=== PATIENT | male | born 1965 | race Caucasian/White ===

== ENCOUNTER → 2023-09-26 10:35 | Outpatient (REF) | payer BC, SELFPAY ==
[2023-09-26 11:36] LABS: % Basophils 0.5 % (0-2); % Eosinophils 2.7 % (0-6); % Immature Granulocytes 0.3 % (0-0.5); % Lymphocytes 29.8 % (20.5-51.1); % Monocytes 9.9 % (1.7-9.3); % Neutrophils 56.8 % (42.2-75.2); Absolute Eosinophils 0.2 10^3/uL (0-0.7); Absolute Lymphocytes 2.3 10^3/uL (1.2-3.4); Absolute Monocytes 0.8 10^3/uL (0.1-0.6); Absolute Neutrophils 4.3 10^3/uL (1.4-6.5); Hematocrit 47.4 % (39.0-52.0); Hemoglobin 16.3 g/dL (13.0-18.0); Mean Corp Hgb Conc. 34.4 g/dL (33.0-37.0); Mean Corpuscular Hgb 30.9 pg (27.0-31.0); Mean Corpuscular Volume 89.8 fL (80.0-94.0); Mean Platelet Volume 10.8 fL (7.4-10.4); Nucleated Red Blood Cells % 0 % (-); Platelet Count 200 10^3/uL (130-400); Red Blood Cell Count 5.28 10^6/uL (4.70-6.10); Red Cell Dist. Width 12.7 % (11.5-14.5); White Blood Cell Count 7.5 10^3/uL (4.8-10.8)
[2023-09-26 12:33] LABS: ALT (SGPT) 28 U/L (0-50); AST (SGOT) 26 U/L (17-59); Albumin 4.3 g/dl (3.5-5.0); Alkaline Phosphatase 59 U/L (38-126); Blood Urea Nitrogen 17 mg/dl (9-20); Calcium 10.4 mg/dl (8.4-10.2); Carbon Dioxide 27 mmol/L (22-30); Chloride 103 mmol/L (98-107); Glucose 100 mg/dl (70-99); Potassium 3.7 mmol/L (3.5-5.1); Sodium 139 mmol/L (135-145); Total Bilirubin 0.8 mg/dl (0.2-1.3); eGFR > 60.00
[2023-09-26 12:55] LABS: TSH Reflex To Free T4 1.12 uIU/ml (0.47-4.68)
[2023-09-26 13:56] LABS: Glycohemoglobin (HgbA1c) 5.7 % (4.0-5.6)
[2023-09-27 14:23] LABS: tTG IgA Antibody 7.2 EU/ml (0-19); tTG IgG Antibody 7.5 EU/ml (0-19)
[2023-09-28 00:02] LABS: IgA 298 mg/dl (70-400)
[2023-09-29 08:00] LABS: Endomysial IgA Antibody Titer <1:10 (<1:10)
== END ==
LOC: REG 10:35
PROVIDERS: ATTENDING PHYSICIAN Nurse Practitioner Family
DX: E11.42 Type 2 diabetes mellitus with diabetic polyneuropathy (principal); R11.0 Nausea; R19.7 Diarrhea, unspecified
CPT/HCPCS: 36415; 80053; 82784; 83036; 83516; 84443; 85025; 86231

== ENCOUNTER → 2024-02-29 07:59 | Outpatient (REF) | payer BC, SELFPAY ==
[2024-02-29 08:43] LABS: % Basophils 0.6 % (0-2); % Eosinophils 2.7 % (0-6); % Immature Granulocytes 0.3 % (0-0.5); % Lymphocytes 29.7 % (20.5-51.1); % Monocytes 9.8 % (1.7-9.3); % Neutrophils 56.9 % (42.2-75.2); Absolute Basophils 0.1 10^3/uL (0-0.2); Absolute Eosinophils 0.2 10^3/uL (0-0.7); Absolute Lymphocytes 2.3 10^3/uL (1.2-3.4); Absolute Monocytes 0.8 10^3/uL (0.1-0.6); Absolute Neutrophils 4.5 10^3/uL (1.4-6.5); Hematocrit 50.9 % (39.0-52.0); Mean Corp Hgb Conc. 33.4 g/dL (33.0-37.0); Mean Corpuscular Hgb 28.3 pg (27.0-31.0); Mean Corpuscular Volume 84.8 fL (80.0-94.0); Mean Platelet Volume 10.3 fL (7.4-10.4); Nucleated Red Blood Cells % 0 % (-); Platelet Count 201 10^3/uL (130-400); Red Cell Dist. Width 13.7 % (11.5-14.5); White Blood Cell Count 7.9 10^3/uL (4.8-10.8)
[2024-02-29 09:47] LABS: Glycohemoglobin (HgbA1c) 6.1 % (4.0-5.6)
[2024-02-29 10:05] LABS: Protein/creatinine Ratio 0.1; Urine Protein 18 mg/dl
[2024-02-29 10:22] LABS: ALT (SGPT) 51 U/L (0-50); AST (SGOT) 50 U/L (17-59); Albumin 4.7 g/dl (3.5-5.0); Alkaline Phosphatase 76 U/L (38-126); Blood Urea Nitrogen 14 mg/dl (9-20); Carbon Dioxide 27 mmol/L (22-30); Chloride 102 mmol/L (98-107); Glucose 109 mg/dl (70-99); HDL Cholesterol 53 mg/dl; LDL Cholesterol, Calculated 132 mg/dl; Potassium 4.2 mmol/L (3.5-5.1); Sodium 141 mmol/L (135-145); Total Bilirubin 0.7 mg/dl (0.2-1.3); Total Cholesterol 212 mg/dl (50-199); Total Protein 7.5 g/dl (6.3-8.2); Triglyceride 139 mg/dl (10-149); Very Low Density Lipoprotein 27 mg/dl (0-30); eGFR > 60.00
[2024-02-29 10:55] LABS: Vitamin D, 25-OH*** 42.7 ng/mL (30-80)
[2024-03-01 23:29] LABS: % Free Testosterone 1.6 % (1.6-2.9); Free Testosterone 130 pg/mL (47-244); Sex Hormone Binding Globulin 50 nmol/L (19-76); Total Testosterone 810 ng/dL (300-890)
== END ==
LOC: REG 07:59
PROVIDERS: ATTENDING PHYSICIAN Nurse Practitioner Primary Care
DX: E11.42 Type 2 diabetes mellitus with diabetic polyneuropathy (principal); R80.9 Proteinuria, unspecified; D75.1 Secondary polycythemia; E55.9 Vitamin D deficiency, unspecified
CPT/HCPCS: 36415; 80053; 80061; 82306; 82570; 83036; 84156; 84270; 84402; 84403; 85025

== ENCOUNTER → 2024-03-18 17:33 | Outpatient (REF) | payer BC, SELFPAY | LOC: MRI 17:33 | PROVIDERS: ATTENDING PHYSICIAN Physician Assistant Surgical; FAMILY PHYSICIAN Nurse Practitioner Primary Care | DX: M54.16 Radiculopathy, lumbar region (principal); M54.50 Low back pain, unspecified; M48.062 Spinal stenosis, lumbar region with neurogenic claudication; Z98.1 Arthrodesis status | CPT/HCPCS: 72158; A9575 ==

== ENCOUNTER 2024-04-01 06:39 | Outpatient (RCR) | payer BC, SELFPAY | END 2024-04-01 23:59 | disposition home or self-care (01) | LOC: RPT 06:39 | PROVIDERS: ATTENDING PHYSICIAN Physician Assistant Surgical; FAMILY PHYSICIAN Nurse Practitioner Primary Care | DX: M48.062 Spinal stenosis, lumbar region with neurogenic claudication (principal); Z73.6 Limitation of activities due to disability; R26.2 Difficulty in walking, not elsewhere classified | CPT/HCPCS: 97112; 97161 ==

== ENCOUNTER 2024-04-08 06:49 | Outpatient (RCR) | payer BC, SELFPAY | END 2024-04-08 23:59 | disposition home or self-care (01) | LOC: RPT 06:49 | PROVIDERS: ATTENDING PHYSICIAN Physician Assistant Surgical; FAMILY PHYSICIAN Nurse Practitioner Primary Care | DX: M48.062 Spinal stenosis, lumbar region with neurogenic claudication (principal); Z73.6 Limitation of activities due to disability; R26.2 Difficulty in walking, not elsewhere classified; R26.89 Other abnormalities of gait and mobility | CPT/HCPCS: 97010; 97110; 97112 ==

== ENCOUNTER → 2024-05-03 09:25 | Outpatient (REF) | payer BC, SELFPAY | LOC: RCS 09:25 | PROVIDERS: ATTENDING PHYSICIAN Nurse Practitioner Family | DX: Z01.818 Encounter for other preprocedural examination (principal) | CPT/HCPCS: 36415; 93005 ==

== ENCOUNTER 2024-05-21 10:12 | Inpatient (IN) | payer BC, SELFPAY ==
[2024-05-07 08:47] VITALS: BMI 46.3
[2024-05-07 08:50] LABS: Hemoglobin 16.4 g/dL (13.0-18.0); Mean Corp Hgb Conc. 33.5 g/dL (33.0-37.0); Mean Corpuscular Hgb 27.8 pg (27.0-31.0); Mean Corpuscular Volume 83.2 fL (80.0-94.0); Mean Platelet Volume 10.5 fL (7.4-10.4); Platelet Count 182 10^3/uL (130-400); Red Blood Cell Count 5.89 10^6/uL (4.70-6.10); Red Cell Dist. Width 14.5 % (11.5-14.5); White Blood Cell Count 7.1 10^3/uL (4.8-10.8)
[2024-05-07 09:25] LABS: ALT (SGPT) 36 U/L (0-50); AST (SGOT) 37 U/L (17-59); Albumin 4.5 g/dl (3.5-5.0); Alkaline Phosphatase 79 U/L (38-126); Blood Urea Nitrogen 12 mg/dl (9-20); Calcium 9.7 mg/dl (8.4-10.2); Carbon Dioxide 25 mmol/L (22-30); Chloride 102 mmol/L (98-107); Estimated Creatinine Clearance > 125 ml/min; Glucose 134 mg/dl (70-99); Sodium 141 mmol/L (135-145); Total Bilirubin 0.6 mg/dl (0.2-1.3); Total Protein 7.3 g/dl (6.3-8.2); eGFR > 60.00
[2024-05-14 08:51] VITALS: BMI 46.3
[2024-05-21] VITALS (20 sets, daily range): BP systolic 115–208; BP diastolic 67–140; PULSE 85; O2SAT 93
[2024-05-21] MEDS: TYLENOL 1000 MG PO ×3 (10:15→22:32)
[2024-05-21] MEDS: CELEBREX 200 MG PO (10:15)
[2024-05-21] MEDS: LYRICA 150 MG PO (10:15)
[2024-05-21] MEDS: SKELAXIN 800 MG PO (10:15)
[2024-05-21] MEDS: DILAUDID 0.5 MG IV ×2 (14:21→15:19)
[2024-05-21] MEDS: TRANDATE 5 MG IV ×2 (14:36→15:03)
[2024-05-21 14:42] LABS: Glucose - Point of Care 127 mg/dl (70-99)
--- NOTE | 2024-05-21 15:34 | W.PN.ORTHO ---
Today's Communication / Plan
-
D/c when clinically stable.
Assessment
.
Distal Motor Intact: Yes
Dressing:
Clean, dry and intact.
Assessment:
Lumbar stenosis and spondylolisthesis with neurogenic claudication s/p removal of implants L3-L4 and L3-L5 PSF w/ Dr Delongu 05/21/24
- s/p L3-L4 microdiscectomy with fusion, 2019, by Dr. Chinchilla
DVT prophylaxis - b/l SCDs/TEDs
HTN - hypertensive post-op 2* non-compliance w/ Losartan and pain - monitor BP
- Given Labetalol x2 in PACU
- Resume Losartan w/ SBP parameters
- Continue low sodium diet as advised by PCP
- Ensure adequate pain control
JUAN JOSE, non-compliant w/ CPAP - monitor O2 on continuous pulse ox
- IS
- Wean supplemental O2 as tolerated. Will, however, order supplemental O2 HS d/t non-compliance w/ device
NIDDM, A1c 6.1 02/2024 - previous Ozempic use - monitor BS
- + SSI
GERD - continue PPI therapy
Chronic pain syndrome � on Dilaudid (reportedly uses 2-3x weekly)
- Monitor pain and adjust pain meds accordingly
BPH w/ LUTS - monitor voids
- Resume Flomax
- Bladder scan/straight cath prn
HLD
Colon polyps
Nephrolithiasis
OA s/p b/l TKA 2018
Recurrent UTIs
Hypogonadism � on Testosterone
ED
H/o [place] palsy
Polycythemia
Morbid obesity, BMI 46.3
History of tobacco abuse
Plan
.
Surgery / Date: Removal of implants L3-L4, L3-L5 PSF w/ Reed 05/21
DVT Prophylaxis: Other (b/l SCDs/TEDs)
Activity:
Out of bed.
PT/OT
Discharge Plan: Home
Subjective
.
.:
Patient examined resting in PACU.
Reports 8/10 low back pain currently - IV Dilaudid provided.
Hypertensive and hypoxic post-procedure in the setting of non-compliance w/ home BP meds, pain, and underlying JUAN JOSE.
Vital Signs and Labs
.
Vital Signs and Labs:
Lab Results
05/07/24 07:52
05/07/24 07:52
Physical Exam
-
HEENT: No pallor, cyanosis, or jaundice. Throat clear.
NECK: Supple. No JVD.
RESPIRATORY: Lungs clear to auscultation.
CVS: S1, S2 normal. RRR.�
ABDOMEN: Soft, non-tender. No distension. Morbidly obese.
EXTREMITIES: Strength equal, no calf pain with palpation/dorsiflexion. Calves soft.
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 No focal deficits. 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
[2024-05-21] MEDS: COZAAR 25 MG PO (15:41)
[2024-05-21] MEDS: NORMOSOL-R/PLASMALYTE-A 1000 IV (16:00)
--- NOTE | 2024-05-21 16:00 | PTCARENOTE ---
Pt received from the pacu via bed. Transport was W/O incident. Pt is AAOx3, HRR, lungs are sl coarse and clear, resp. easy, Pulse ox 96% on 2Lvia nc. BP elevated at 151/111, Pulse 81, res 18. Will monitor bp closely and notify MD as necessary. Pt's
lumbar back dressing C/D/I, no drainage noted at present. Pt instructed on plan of care. Pt verbalized understanding of instructions. Call chacon is within reach.
[2024-05-21 17:13] LABS: Glucose - Point of Care 138 mg/dl (70-99)
[2024-05-21] MEDS: ULTRAM 50 MG PO ×2 (17:42→23:38)
[2024-05-21] MEDS: PROTONIX 40 MG PO (17:43)
[2024-05-21] MEDS: FLOMAX 0.4 MG PO (17:43)
[2024-05-21] MEDS: LIPITOR 20 MG PO (17:43)
[2024-05-21] MEDS: LIORESAL 10 MG PO (17:43)
[2024-05-21] MEDS: ANCEF 5 IV (17:48)
[2024-05-21] MEDS: APRESOLINE 5 MG IV (18:43)
[2024-05-21] MEDS: SENOKOT 17.2 MG PO (20:20)
[2024-05-21] MEDS: COLACE 100 MG PO (20:20)
[2024-05-21] MEDS: DILAUDID 4 MG PO (20:40)
[2024-05-21 21:23] LABS: Glucose - Point of Care 162 mg/dl (70-99)
[2024-05-21] MEDS: LYRICA 75 MG PO (22:32)
[2024-05-22] MEDS: ANCEF 5 IV (02:10)
[2024-05-22 03:57] VITALS: BP 117/71
[2024-05-22] MEDS: TYLENOL 1000 MG PO ×2 (04:11→09:55)
[2024-05-22 05:40] LABS: Hematocrit 48.9 % (39.0-52.0); Hemoglobin 15.6 g/dL (13.0-18.0)
[2024-05-22] MEDS: ULTRAM 50 MG PO ×2 (06:08→12:18)
[2024-05-22] MEDS: DILAUDID 2 MG PO (06:10)
[2024-05-22 06:12] LABS: Blood Urea Nitrogen 16 mg/dl (9-20); Calcium 8.8 mg/dl (8.4-10.2); Carbon Dioxide 26 mmol/L (22-30); Chloride 100 mmol/L (98-107); Estimated Creatinine Clearance > 125 ml/min; Glucose 136 mg/dl (70-99); Potassium 4.2 mmol/L (3.5-5.1); Sodium 138 mmol/L (135-145); eGFR > 60.00
[2024-05-22 07:00] VITALS: BP 122/72
[2024-05-22 07:25] LABS: Glucose - Point of Care 140 mg/dl (70-99)
[2024-05-22 08:49] VITALS: BP 124/88; BP 160/98; PULSE 73; O2SAT 93
[2024-05-22 09:19] VITALS: BP 160/98; PULSE 81; O2SAT 94
--- NOTE | 2024-05-22 09:35 | CM ---
Addendum entered by Onelia Olson RN 05/22/24 09:58:
Patient and spouse now decline VN services. Referral cancelled.
Original Note:
Reviewed the chart notes and spoke with the patient at the bedside. The patient resides with his spouse in a two story home with two steps to enter. The patient has a rolling walker and a cane. The patient has had [facility] VN in the past, but no SNF.
Reviewed various VN agencies, patient selected VN. Referral sent via [facility]. The patient confirmed his pharmacy of choice is the [facility] [address] [facility]. CM continues to be available to patient/family and is monitoring medical plan for needs at
discharge.
Plan: Discharge to home when medically stable with VN services.
[2024-05-22] MEDS: FLOMAX 0.4 MG PO (09:54)
[2024-05-22] MEDS: LIPITOR 20 MG PO (09:54)
[2024-05-22] MEDS: COLACE 100 MG PO (09:54)
[2024-05-22] MEDS: SENOKOT 17.2 MG PO (09:55)
[2024-05-22] MEDS: PROTONIX 40 MG PO (09:55)
[2024-05-22] MEDS: LYRICA 75 MG PO (09:55)
--- NOTE | 2024-05-22 10:01 | W.PN.ORTHO ---
Today's Communication / Plan
-
D/c today since clinically stable, did well w/ PT and OT.
Assessment
.
Distal Motor Intact: Yes
Dressing:
Clean, dry and intact.
Assessment:
Lumbar stenosis and spondylolisthesis with neurogenic claudication s/p removal of implants L3-L4 and L3-L5 PSF w/ Dr Reed 05/21/24
- s/p L3-L4 microdiscectomy with fusion, 2019, by Dr. Chinchilla
DVT prophylaxis - b/l SCDs/TEDs
HTN - accelerated HTN post-op 2* non-compliance w/ Losartan and pain - BPs stabilized by POD 1
- Given Labetalol x2 in PACU
- Resumed Losartan w/ SBP parameters -> will continue at home. Rx provided
- Continue low sodium diet as advised by PCP
- Pain controlled prior to d/c
JUAN JOSE, non-compliant w/ CPAP - O2 now stable on RA
- IS
- Weaned supplemental O2 as tolerated. Did, however, order supplemental O2 HS d/t non-compliance w/ device. Pt to discuss possible JUAN JOSE interventions w/ PCP.
NIDDM, A1c 6.1 02/2024 - previous Ozempic use - BS readings stable overall
- + SSI
GERD - continue PPI therapy
Chronic pain syndrome � on Dilaudid (reportedly uses 2-3x weekly)
- Pain well controlled by POD 1
BPH w/ LUTS - voiding appropriately by POD 1 w/ resumption of home Flomax
- Bladder scan/straight cath not indicated
HLD
Colon polyps
Nephrolithiasis
OA s/p b/l TKA 2018
Recurrent UTIs
Hypogonadism � on Testosterone
ED
H/o [place] palsy
Polycythemia
Morbid obesity, BMI 46.3
History of tobacco abuse
Plan
.
Surgery / Date: Removal of implants L3-L4, L3-L5 PSF w/ Derek 05/21
DVT Prophylaxis: Other (b/l SCDs/TEDS)
Activity:
Out of bed.
PT/OT
Discharge Plan: Home
Subjective
.
.:
Patient resting comfortably in his chair.
Low back pain minimal w/ current pain meds.
Denies any new significant complaints. AM labs stable.
BP and SpO2 notably improved w/ medical interventions overnight.
Eager for potential d/c today.
Vital Signs and Labs
.
Vital Signs and Labs:
Lab Results
05/22/24 05:26
05/22/24 05:26
Temp Pulse Resp BP Pulse Ox
97.8 F 81 18 122/72 96
05/22/24 07:00 05/22/24 08:00 05/22/24 07:00 05/22/24 08:00 05/22/24 07:00
Physical Exam
-
HEENT: No pallor, cyanosis, or jaundice. Throat clear.
NECK: Supple. No JVD.
RESPIRATORY: Lungs clear to auscultation.
CVS: S1, S2 normal. RRR.
ABDOMEN: Soft, non-tender. No distension. Morbidly obese.
EXTREMITIES: Strength equal, no calf pain with palpation/dorsiflexion. Calves soft.
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 No focal deficits. 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
--- NOTE | 2024-05-22 10:18 | W.DS.TRANS ---
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
-
Discharge Instructions:
Discharge Diagnosis/Procedures Lumbar stenosis and spondylolisthesis with
neurogenic claudication s/p removal of implants
L3-L4 and L3-L5 PSF w/ Dr Reed 05/21/24
Diet Diabetic, Carb Controlled
Activity As tolerated
Additional Activity No heavy lifting >10 lbs
Driving Restrictions Not until seen by your Dr
Bathing Restrictions OK to shower in 4 days
Instructions:
Stand-Alone Forms: [facility] Lumbar D/C Inst.
Changes to Home Medications: Yes
Discharge Medications:
DC Medications w/original date entered in [employer]
testosterone cypionate 200 mg/mL intramuscular oil 75 mg IM TU 09/21/18
tamsulosin 0.4 mg capsule 0.4 mg PO DAILY #15 caps 10/01/18
omeprazole 20 mg capsule,delayed release 20 mg PO DAILY 12/31/18
atorvastatin 20 mg tablet (Lipitor) 20 mg PO DAILY 05/14/24
sildenafil 100 mg tablet 100 mg PO HS 05/14/24
terbinafine HCl 250 mg tablet 250 mg PO DAILY 05/14/24
Saccharomyces boulardii 250 mg capsule (Florastor) 250 mg PO BID #10 caps 05/22/24
acetaminophen 500 mg tablet (Tylenol Extra Strength) 1,000 mg (2 x 500 mg) PO Q6H #60 tabs 05/22/24
baclofen 10 mg tablet 10 mg PO BIDPRN PRN muscle spasms #10 tabs 05/22/24
cephalexin 500 mg capsule 500 mg PO Q6H #20 caps 05/22/24
docusate sodium 100 mg capsule 100 mg PO BID #30 caps 05/22/24
hydromorphone 2 mg tablet 2 - 4 mg (1 - 2 x 2 mg) PO Q6H PRN moderate-severe pain #30 tabs 05/22/24
losartan 25 mg tablet 25 mg PO DAILY #30 tabs 05/22/24
ondansetron HCl 4 mg tablet 4 mg PO Q6H PRN nausea and vomiting #30 tabs 05/22/24
pregabalin 75 mg capsule 75 mg PO BID neuropathic pain #15 caps 05/22/24
sennosides 8.6 mg tablet (Senna Laxative) 17.2 mg (2 x 8.6 mg) PO BID #30 tabs 05/22/24
Home Medication Changes
Saccharomyces boulardii 250 mg capsule (Florastor) 250 mg PO BID #10 caps 05/22/24
acetaminophen 500 mg tablet (Tylenol Extra Strength) 1,000 mg (2 x 500 mg) PO Q6H #60 tabs 05/22/24
baclofen 10 mg tablet 10 mg PO BIDPRN PRN muscle spasms #10 tabs 05/22/24
cephalexin 500 mg capsule 500 mg PO Q6H #20 caps 05/22/24
docusate sodium 100 mg capsule 100 mg PO BID #30 caps 05/22/24
hydromorphone 2 mg tablet 2 - 4 mg (1 - 2 x 2 mg) PO Q6H PRN moderate-severe pain #30 tabs 05/22/24
losartan 25 mg tablet 25 mg PO DAILY #30 tabs 05/22/24
ondansetron HCl 4 mg tablet 4 mg PO Q6H PRN nausea and vomiting #30 tabs 05/22/24
pregabalin 75 mg capsule 75 mg PO BID neuropathic pain #15 caps 05/22/24
sennosides 8.6 mg tablet (Senna Laxative) 17.2 mg (2 x 8.6 mg) PO BID #30 tabs 05/22/24
Pending Results: No
[2024-05-22 11:00] VITALS: BP 148/85
[2024-05-22 11:37] LABS: Glucose - Point of Care 135 mg/dl (70-99)
== END 2024-05-22 15:18 | disposition home health service (06) | DRG 448 ==
LOC: 2 SOUTH 10:12
PROVIDERS: Physician Assistant; ADMITTING PHYSICIAN Orthopaedic Surgery Orthopaedic Surgery of the Spine; FAMILY PHYSICIAN Nurse Practitioner Primary Care
PROC: 0SG10K1 Fusion of 2 or more Lumbar Vertebral Joints with Nonautologous Tissue Substitute, Posterior Approach, Posterior Column, Open Approach (ICD-10-PCS; 2024-05-21)
PROC: 0SP004Z Removal of Internal Fixation Device from Lumbar Vertebral Joint, Open Approach (ICD-10-PCS; 2024-05-21)
DX: T84.226A Displacement of internal fixation device of vertebrae, initial encounter (principal); Z68.42 Body mass index [BMI] 45.0-49.9, adult; M48.062 Spinal stenosis, lumbar region with neurogenic claudication; M43.16 Spondylolisthesis, lumbar region; M41.9 Scoliosis, unspecified; E11.42 Type 2 diabetes mellitus with diabetic polyneuropathy; I10 Essential (primary) hypertension; E66.01 Morbid (severe) obesity due to excess calories; G47.33 Obstructive sleep apnea (adult) (pediatric); E29.1 Testicular hypofunction; K21.9 Gastro-esophageal reflux disease without esophagitis; G89.4 Chronic pain syndrome; N40.0 Benign prostatic hyperplasia without lower urinary tract symptoms; R09.02 Hypoxemia; Z79.899 Other long term (current) drug therapy; Z96.653 Presence of artificial knee joint, bilateral; Z87.891 Personal history of nicotine dependence; Z79.85 Long-term (current) use of injectable non-insulin antidiabetic drugs; Y79.2 Prosthetic and other implants, materials and accessory orthopedic devices associated with adverse incidents
CPT/HCPCS: 72100; 76000; 80048; 80053; 82962; 85014; 85018; 85027; 86850; 86900; 86901; 87070; 97116; 97162; 97166; 97530; 97535

== ENCOUNTER 2024-07-31 14:14 | Outpatient (RCR) | payer BC, SELFPAY | END 2024-07-31 23:59 | disposition home or self-care (01) | LOC: RPT 14:14 | PROVIDERS: ATTENDING PHYSICIAN Orthopaedic Surgery Orthopaedic Surgery of the Spine; FAMILY PHYSICIAN Nurse Practitioner Primary Care | DX: Z47.89 Encounter for other orthopedic aftercare (principal); M43.16 Spondylolisthesis, lumbar region; Z73.6 Limitation of activities due to disability; M62.81 Muscle weakness (generalized); M54.50 Low back pain, unspecified; Z98.1 Arthrodesis status | CPT/HCPCS: 97010; 97110; 97112; 97161 ==

== ENCOUNTER → 2024-09-13 08:17 | Outpatient (REF) | payer BC, SELFPAY ==
[2024-09-13 09:59] LABS: ALT (SGPT) 43 U/L (0-50); AST (SGOT) 38 U/L (17-59); Albumin 4.2 g/dl (3.5-5.0); Alkaline Phosphatase 84 U/L (38-126); Blood Urea Nitrogen 8 mg/dl (9-20); Calcium 9.4 mg/dl (8.4-10.2); Carbon Dioxide 28 mmol/L (22-30); Chloride 103 mmol/L (98-107); Glucose 121 mg/dl (70-99); HDL Cholesterol 44 mg/dl; LDL Cholesterol, Calculated 63 mg/dl; Potassium 3.9 mmol/L (3.5-5.1); Sodium 139 mmol/L (135-145); Total Bilirubin 1.1 mg/dl (0.2-1.3); Total Cholesterol 124 mg/dl (50-199); Total Protein 7.1 g/dl (6.3-8.2); Triglyceride 88 mg/dl (10-149); Very Low Density Lipoprotein 17 mg/dl (0-30); eGFR > 60.00
[2024-09-13 10:09] LABS: FSH < 0.7 mIU/ml (1.55-9.74); Luteinizing Hormone < 0.22 mIU/ml (1.24-7.80); Prolactin 10.6 ng/ml (3.7-17.9)
[2024-09-13 10:23] LABS: Glycohemoglobin (HgbA1c) 6.6 % (4.0-5.6)
[2024-09-13 10:24] LABS: Estradiol 34.8 pg/ml (5.4-66)
[2024-09-13 10:38] LABS: Microalbumin, Random Urine 11.9 mg/dl (0.6-1.7); Microalbumin/creatinine Ratio 38.5 mg/g
[2024-09-15 01:05] LABS: Sex Hormone Binding Globulin 51 nmol/L (19-76)
== END ==
LOC: REG 08:17
PROVIDERS: ATTENDING PHYSICIAN Nurse Practitioner Primary Care
DX: E11.42 Type 2 diabetes mellitus with diabetic polyneuropathy (principal); E78.2 Mixed hyperlipidemia; E29.1 Testicular hypofunction
CPT/HCPCS: 36415; 80053; 80061; 82043; 82570; 82670; 83001; 83002; 83036; 84146; 84270

== ENCOUNTER → 2025-02-03 08:05 | Outpatient (REF) | payer BC, SELFPAY | LOC: REG 08:05 | PROVIDERS: ATTENDING PHYSICIAN Nurse Practitioner Primary Care | DX: E29.1 Testicular hypofunction (principal); N52.9 Male erectile dysfunction, unspecified; E11.9 Type 2 diabetes mellitus without complications; R79.89 Other specified abnormal findings of blood chemistry | CPT/HCPCS: 36415; 84270; 84402; 84403 ==

== ENCOUNTER → 2025-05-01 08:21 | Outpatient (REF) | payer BC, SELFPAY ==
[2025-05-01 09:59] LABS: Hematocrit 52.5 % (39.0-52.0); Hemoglobin 16.1 g/dL (13.0-18.0); Mean Corp Hgb Conc. 30.7 g/dL (33.0-37.0); Mean Corpuscular Volume 85.1 fL (80.0-94.0); Nucleated Red Blood Cells % 0 % (-); Platelet Count 200 10^3/uL (130-400); Red Cell Dist. Width 14.6 % (11.5-14.5)
[2025-05-01 11:54] LABS: Glycohemoglobin (HgbA1c) 6.3 % (4.0-5.9)
[2025-05-01 13:23] LABS: Microalb - Urine Creatinine 278.700 mg/dl
[2025-05-01 13:33] LABS: ALT (SGPT) 47 U/L (0-50); AST (SGOT) 41 U/L (17-59); Albumin 4.6 g/dl (3.5-5.0); Alkaline Phosphatase 70 U/L (38-126); Blood Urea Nitrogen 9 mg/dl (9-20); Calcium 10.0 mg/dl (8.4-10.2); Carbon Dioxide 24 mmol/L (22-30); Chloride 105 mmol/L (98-107); Glucose 104 mg/dl (70-99); HDL Cholesterol 48 mg/dl; Iron 50 ug/dl (49-181); LDL Cholesterol, Calculated 72 mg/dl; Potassium 4.1 mmol/L (3.5-5.1); Sodium 140 mmol/L (135-145); Total Protein 7.6 g/dl (6.3-8.2); Very Low Density Lipoprotein 20 mg/dl (0-30); eGFR > 60.00
[2025-05-01 13:44] LABS: Total Iron Binding Capacity 405 ug/dl (261-462)
[2025-05-01 13:47] LABS: Microalbumin, Random Urine 42.7 mg/dl (0.6-1.7)
[2025-05-01 14:54] LABS: Vitamin D, 25-OH*** 39.1 ng/mL (30-80)
[2025-05-01 15:08] LABS: PSA, Total - Screen 2.10 ng/ml (0.0-4.0)
[2025-05-01 15:13] LABS: Ferritin 12.0 ng/ml (17.9-464.0)
[2025-05-01 15:29] LABS: Vitamin B12 387 pg/ml (239-931)
[2025-05-01 18:52] LABS: Hepatitis C Antibody Negative (Negative)
[2025-05-03 22:37] LABS: HCV Quant by NAAT IU/mL Not Detected; HCV Quant by NAAT Interp Not Detected (Not Detected); HCV Quant by NAAT Log IU/mL Not Detected log IU/mL
== END ==
LOC: REG 08:21
PROVIDERS: ATTENDING PHYSICIAN Nurse Practitioner Primary Care
DX: R76.89 Other specified abnormal immunological findings in serum (principal); E11.42 Type 2 diabetes mellitus with diabetic polyneuropathy; I10 Essential (primary) hypertension; D75.1 Secondary polycythemia; K21.9 Gastro-esophageal reflux disease without esophagitis; Z79.899 Other long term (current) drug therapy
CPT/HCPCS: 36415; 80053; 80061; 82043; 82306; 82570; 82607; 82728; 83036; 83540; 83550; 84270; 84402; 84403; 85025; 86803; 87522; G0103

== ENCOUNTER 2025-05-16 06:06 | Day surgery (SDC) | payer BC, SELFPAY ==
[2025-05-16 07:26] VITALS: BMI 45.0
[2025-05-16 07:34] VITALS: BMI 45.0
[2025-05-16 07:43] VITALS: BP 141/89
== END 2025-05-16 09:23 | disposition home or self-care (01) ==
LOC: SDS 06:06
PROVIDERS: ATTENDING PHYSICIAN Internal Medicine Gastroenterology
DX: Z12.11 Encounter for screening for malignant neoplasm of colon (principal); D12.0 Benign neoplasm of cecum; K57.30 Diverticulosis of large intestine without perforation or abscess without bleeding; K64.8 Other hemorrhoids; Z86.0100 Personal history of colon polyps, unspecified
CPT/HCPCS: 45380; 88305